=== PATIENT | male | born 1975 ===

== ENCOUNTER 2021-02-10 20:42 | Emergency (ER) | payer OTHER ==
[2021-02-10] MEDS ORDERED: HYDROmorphone 1 MG/ML CARPUJECT IM STA (20:58)
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
[2021-02-10] MEDS ORDERED: TETANUS/DIPHTHERIA/PERTUSSIS 0.5 ML SYRINGE IM ONE (21:41)
[2021-02-10] MEDS ORDERED: oxyCODONE/ACET 5/325 Prepack 4 PO STA (22:19)
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
[2021-02-10] MEDS ORDERED: ONDANSETRON ODT 4 MG TABLET TL STA (22:26)
[2021-02-10 22:50] VITALS: BP 145/80
== END 2021-02-10 22:51 | disposition home or self-care (01) ==
LOC: ED 20:42
DX: S42.021A Displaced fracture of shaft of right clavicle, initial encounter for closed fracture (principal); S80.812A Abrasion, left lower leg, initial encounter; S80.811A Abrasion, right lower leg, initial encounter; V18.0XXA Pedal cycle driver injured in noncollision transport accident in nontraffic accident, initial encounter; Y93.55 Activity, bike riding; Y92.008 Other place in unspecified non-institutional (private) residence as the place of occurrence of the external cause
CPT/HCPCS: 73000; 73030; 96372; 99283; 99284; J1170; Q0162